=== PATIENT | male | born 1955 | race Caucasian/White ===

== ENCOUNTER 2018-06-30 12:13 | Emergency (ER) | payer OTHER ==
[~2018-06-30] VITALS: Ht 170.2 cm; Wt 97.5 kg
[~2018-06-30 12:13] MED LIST: AVAPRO150 MG; CIPRO500 MG PO; LESCOL20 MG; LEVSIN/SL0.125 MG SL; TAMS0.4C PO; ULTRACET PO
== END 2018-06-30 15:18 | disposition home or self-care (01) ==
LOC: ER 12:13
DX: R10.32 Left lower quadrant pain (principal)

== ENCOUNTER 2018-12-22 15:44 | Emergency (ER) | payer OTHER ==
[~2018-12-22] VITALS: Ht 170.2 cm; Wt 102.1 kg
[2018-12-22] MEDS ORDERED: MICARDIS40 MG (15:59)
[2018-12-22] MEDS ORDERED: OMEGA 3 ACID (16:01)
== END 2018-12-22 19:59 | disposition home or self-care (01) ==
LOC: ER 15:44
DX: M94.0 Chondrocostal junction syndrome [Tietze] (principal)

== ENCOUNTER 2022-05-15 20:27 | Emergency (ER) | payer OTHER ==
[~2022-05-15] VITALS: Ht 185.4 cm; Wt 95.3 kg
[~2022-05-15 20:27] MED LIST changes: +MICARDIS40 MG; +OMEGA 3 ACID
[2022-05-15] MEDS ORDERED: KEPPRA500 MG (20:41)
[2022-05-15] MEDS ORDERED: LANTUS SOL100 UNIT/1 (20:42)
[2022-05-15] MEDS ORDERED: MILLIPRED5 MG (20:42)
[2022-05-15] MEDS ORDERED: TERAZOSIN HCL1 M1 (20:42)
[2022-05-15] MEDS ORDERED: VISTARIL25 MG (20:42)
== END 2022-05-16 04:13 | disposition designated cancer center or children's hospital (05) ==
LOC: ER 20:27
DX: J95.03 Malfunction of tracheostomy stoma (principal); I10 Essential (primary) hypertension; Z88.0 Allergy status to penicillin; I63.9 Cerebral infarction, unspecified; Z20.822 Contact with and (suspected) exposure to COVID-19

== ENCOUNTER 2022-05-21 13:45 | Inpatient (IN) | payer OTHER ==
[~2022-05-21] VITALS: Ht 152.4 cm; Wt 952.5 kg
[~2022-05-21 13:45] MED LIST changes: +KEPPRA500 MG; +LANTUS SOL100 UNIT/1; +MILLIPRED5 MG; +TERAZOSIN HCL1 M1; +VISTARIL25 MG
[2022-05-23] MEDS ORDERED: PAROXETINE HCL20 MG (08:13)
[2022-05-23] MEDS ORDERED: FAMOTIDINE20 MG (08:13)
[2022-05-23] MEDS ORDERED: OMEPRAZOLE20 MG (08:13)
[2022-05-23] MEDS ORDERED: PREDNISONE10 M2 (08:13)
[2022-05-23] MEDS ORDERED: SPIRONOLACTONE25 MG (08:13)
[2022-05-23] MEDS ORDERED: MIDODRINE HCL10 MG (08:13)
[2022-05-23] MEDS ORDERED: FLOVENT HFA12 G1 (08:13)
[2022-05-23] MEDS ORDERED: EZETIMIBE10 MG (08:14)
[2022-05-23] MEDS ORDERED: TELMISARTAN40 MG (08:14)
[2022-05-23] MEDS ORDERED: FLUVASTATIN SOD40 MG (08:14)
[2022-06-13] MEDS ORDERED: KEPPRA100 MG/1 M PO (15:15)
[2022-06-13] MEDS ORDERED: XOPENEX0.63 MG/3 IH (15:15)
== END 2022-06-13 22:36 | disposition home or self-care (01) | DRG 3 ==
LOC: ER 13:45 → ICU 05-22 11:40 → ICU-2 05-22 11:40 → MEDI 05-26 13:11 → ICU 05-28 02:57
PROVIDERS: Otolaryngology; ADMIT Internal Medicine; ATTEND Internal Medicine
PROC: B020ZZZ Computerized Tomography (CT Scan) of Brain (ICD-10-PCS; 2022-05-21)
PROC: 5A1945Z Respiratory Ventilation, 24-96 Consecutive Hours (ICD-10-PCS; 2022-05-22)
PROC: 0BH17EZ Insertion of Endotracheal Airway into Trachea, Via Natural or Artificial Opening (ICD-10-PCS; 2022-05-22)
PROC: 02HV33Z Insertion of Infusion Device into Superior Vena Cava, Percutaneous Approach (ICD-10-PCS; 2022-05-24)
PROC: 5A1955Z Respiratory Ventilation, Greater than 96 Consecutive Hours (ICD-10-PCS; 2022-05-27)
PROC: 0BH17EZ Insertion of Endotracheal Airway into Trachea, Via Natural or Artificial Opening (ICD-10-PCS; 2022-05-27)
PROC: 4A12X4Z Monitoring of Cardiac Electrical Activity, External Approach (ICD-10-PCS; 2022-05-27)
PROC: 0G8J0ZZ Division of Thyroid Gland Isthmus, Open Approach (ICD-10-PCS; 2022-06-07)
PROC: B020ZZZ Computerized Tomography (CT Scan) of Brain (ICD-10-PCS; 2022-06-07)
PROC: 0B110F4 Bypass Trachea to Cutaneous with Tracheostomy Device, Open Approach (ICD-10-PCS; principal; 2022-06-07 18:15)
PROC: 5A0955A Assistance with Respiratory Ventilation, Greater than 96 Consecutive Hours, High Flow/Velocity Cannula (ICD-10-PCS; 2022-06-09)
DX: J96.20 Acute and chronic respiratory failure, unspecified whether with hypoxia or hypercapnia (principal); G93.41 Metabolic encephalopathy; I69.351 Hemiplegia and hemiparesis following cerebral infarction affecting right dominant side; N39.0 Urinary tract infection, site not specified; J95.09 Other tracheostomy complication; J95.851 Ventilator associated pneumonia; J81.1 Chronic pulmonary edema; J98.8 Other specified respiratory disorders; B96.4 Proteus (mirabilis) (morganii) as the cause of diseases classified elsewhere; B95.61 Methicillin susceptible Staphylococcus aureus infection as the cause of diseases classified elsewhere; J39.8 Other specified diseases of upper respiratory tract; G47.33 Obstructive sleep apnea (adult) (pediatric); R23.0 Cyanosis; I11.9 Hypertensive heart disease without heart failure; I49.9 Cardiac arrhythmia, unspecified; I69.398 Other sequelae of cerebral infarction; R56.9 Unspecified convulsions; Z93.1 Gastrostomy status; Z95.0 Presence of cardiac pacemaker; Z99.81 Dependence on supplemental oxygen; Z88.0 Allergy status to penicillin

== ENCOUNTER 2022-09-30 15:37 | Inpatient (IN) | payer OTHER ==
[~2022-09-30] VITALS: Ht 170.2 cm; Wt 95.3 kg
[~2022-09-30 15:37] MED LIST changes: +EZETIMIBE10 MG; +FAMOTIDINE20 MG; +FLOVENT HFA12 G1; +FLUVASTATIN SOD40 MG; +KEPPRA100 MG/1 M PO; +MIDODRINE HCL10 MG; +OMEPRAZOLE20 MG; +PAROXETINE HCL20 MG; +PREDNISONE10 M2; +SPIRONOLACTONE25 MG; +TELMISARTAN40 MG; +XOPENEX0.63 MG/3 IH
[2022-10-03] MEDS ORDERED: CIPRO500 MG PO (18:46)
[2022-10-03] MEDS ORDERED: SURFAK240 M1 PO (18:46)
[2022-10-03] MEDS ORDERED: MONODOX100 MG PO (18:46)
[2022-10-03] MEDS ORDERED: LACTULOSE10 GM/152 PO (18:46)
[2022-10-03] MEDS ORDERED: INTESTINEX680 M2 PO (18:46)
== END 2022-10-03 18:56 | disposition home or self-care (01) | DRG 327 ==
LOC: ER 15:37 → MEDI 23:03
PROVIDERS: ADMIT Internal Medicine; ATTEND Internal Medicine
PROC: BW21YZZ Computerized Tomography (CT Scan) of Abdomen and Pelvis using Other Contrast (ICD-10-PCS; 2022-09-30)
PROC: 0DP64UZ Removal of Feeding Device from Stomach, Percutaneous Endoscopic Approach (ICD-10-PCS; principal; 2022-10-02)
DX: K94.23 Gastrostomy malfunction (principal); T85.528A Displacement of other gastrointestinal prosthetic devices, implants and grafts, initial encounter; K94.22 Gastrostomy infection; J44.9 Chronic obstructive pulmonary disease, unspecified; K74.60 Unspecified cirrhosis of liver; E11.9 Type 2 diabetes mellitus without complications; Z79.4 Long term (current) use of insulin

== ENCOUNTER 2022-12-21 16:46 | Inpatient (IN) | payer OTHER ==
[~2022-12-21] VITALS: Ht 170.2 cm; Wt 77.1 kg
[~2022-12-21 16:46] MED LIST changes: +INTESTINEX680 M2 PO; +LACTULOSE10 GM/152 PO; +MONODOX100 MG PO; +SURFAK240 M1 PO
[2022-12-21] MEDS ORDERED: PRILOSEC10 MG (17:09)
[2022-12-21 18:46] LABS: URINE APPEARANCE Cloudy; URINE BILIRRUBIN Negative (NEGATIVE); URINE BLOOD Negative; URINE COLOR Dark Yellow; URINE GLUCOSE Negative (NEGATIVE); URINE LEUKOCYTE Trace; URINE NITRATE Negative; URINE PROTEIN Trace (NEGATIVE)
[2022-12-21 18:51] LABS: URINE BACTERIA 28.9 uL (0.0-1933); URINE EPITHELIAL CELLS 5.1 uL (0.0-38.8); URINE RBC 141.7 uL (0.0-20.8); URINE WBC 22.5 uL (0.0-23.2)
[2022-12-21 19:18] LABS: HEMATOCRIT 38.4 % (39.0-48.0); HEMOGLOBIN 12.5 g/dL (13-16.00); MEAN CELL VOLUME 87.1 fL (80.0-100.00); MEAN CORPUSCULAR HEMOGLOBIN 28.3 pg (27.00-32.0); MEAN CORPUSCULAR HGB CONC 32.5 g/dl (32.0-36.0); PLATELET COUNT 157 K/uL (150-450); RED BLOOD COUNT 4.41 M/uL (4.00-6.00); RED CELL DISTRIBUTION WIDTH 14.7 % (11.5-14.5)
[2022-12-21 19:42] LABS: URINE YEAST MANY /hpf
[2022-12-21 19:47] LABS: INR 1.11; PARTIAL THROMBOPLASTIN TIME 34.9 SECONDS (22.0-34.0); PROTHROMBIN TIME 11.6 SECONDS (9.0-11.5)
[2022-12-21 19:48] LABS: CALCIUM 8.2 mg/dL (8.5-10.1); CREATININE SERUM 0.53 mg/dL (0.70-1.30); GFR 154.6; POTASSIUM 3.52 mEq/L (3.5-5.1)
[2022-12-23 06:42] LABS: INR 1.13; PARTIAL THROMBOPLASTIN TIME 29.5 SECONDS (22.0-34.0); PROTHROMBIN TIME 11.8 SECONDS (9.0-11.5)
[2022-12-24 06:33] LABS: HEMATOCRIT 33.7 % (39.0-48.0); HEMOGLOBIN 11.5 g/dL (13-16.00); MEAN CORPUSCULAR HEMOGLOBIN 28.9 pg (27.00-32.0); PLATELET COUNT 183 K/uL (150-450); RED BLOOD COUNT 3.97 M/uL (4.00-6.00)
[2022-12-24 06:57] LABS: ALBUMIN 1.8 gm/dL (3.4-5.0); BILIRUBIN TOTAL 0.52 mg/dL (0.3-1.2); CREATININE SERUM 0.39 mg/dL (0.70-1.30); GFR 220.26; GLOBULINA 2.9 G/DL (2.4-3.5); MAGNESIUM 1.8 mg/dL (1.8-2.4); PHOSPHOROUS 2.1 mg/dL (2.5-4.9); POTASSIUM 3.3 mEq/L (3.5-5.1); TOTAL PROTEIN 4.7 gm/dL (6.4-8.2)
[2022-12-24 11:26] LABS: URINE APPEARANCE Clear; URINE BILIRRUBIN Negative (NEGATIVE); URINE BLOOD Negative; URINE COLOR Yellow; URINE GLUCOSE Negative (NEGATIVE); URINE LEUKOCYTE Trace; URINE NITRATE Negative; URINE PROTEIN Negative (NEGATIVE); URINE UROBILINOGEN 0.2 E.U./dl
[2022-12-24 11:32] LABS: URINE BACTERIA 7.5 uL (0.0-1933); URINE RBC 20.9 uL (0.0-20.8); URINE WBC 27.6 uL (0.0-23.2)
[2022-12-24 11:37] LABS: URINE EPITHELIAL CELLS 1.3 uL (0.0-38.8)
[2022-12-24 13:58] LABS: URINE CRYSTALS NEGATIVE /HPF; URINE MUCUS SCANT; URINE YEAST MODERATE /hpf
[2022-12-25 05:18] LABS: CREATININE SERUM 0.4 mg/dL (0.70-1.30); GFR 213.92; POTASSIUM 3.33 mEq/L (3.5-5.1)
[2022-12-26 06:24] LABS: HEMATOCRIT 31.2 % (39.0-48.0); HEMOGLOBIN 10.8 g/dL (13-16.00); MEAN CELL VOLUME 84.6 fL (80.0-100.00); MEAN CORPUSCULAR HEMOGLOBIN 29.2 pg (27.00-32.0); MEAN CORPUSCULAR HGB CONC 34.5 g/dl (32.0-36.0); PLATELET COUNT 213 K/uL (150-450); RED BLOOD COUNT 3.68 M/uL (4.00-6.00); RED CELL DISTRIBUTION WIDTH 14.8 % (11.5-14.5)
[2022-12-26 06:56] LABS: ALBUMIN 1.7 gm/dL (3.4-5.0); BILIRUBIN TOTAL 0.42 mg/dL (0.3-1.2); CALCIUM 7.9 mg/dL (8.5-10.1); CREATININE SERUM 0.4 mg/dL (0.70-1.30); GFR 213.92; MAGNESIUM 1.8 mg/dL (1.8-2.4); PHOSPHOROUS 2.2 mg/dL (2.5-4.9); POTASSIUM 3.33 mEq/L (3.5-5.1); TOTAL PROTEIN 4.7 gm/dL (6.4-8.2)
[2022-12-26 07:33] LABS: C-REACTIVE PROTEIN 2.98 MG/DL (0.00-0.29)
== END 2022-12-26 16:49 | disposition home or self-care (01) | DRG 392 ==
LOC: ER 16:46 → MEDJ 12-22 17:25
PROVIDERS: General Practice; Internal Medicine Infectious Disease; ADMIT Internal Medicine; ATTEND Internal Medicine
PROC: BW21ZZZ Computerized Tomography (CT Scan) of Abdomen and Pelvis (ICD-10-PCS; principal; 2022-12-21)
DX: K52.9 Noninfective gastroenteritis and colitis, unspecified (principal); B37.49 Other urogenital candidiasis; I88.9 Nonspecific lymphadenitis, unspecified; E11.9 Type 2 diabetes mellitus without complications; I10 Essential (primary) hypertension; Z74.01 Bed confinement status; Z79.4 Long term (current) use of insulin; Z93.0 Tracheostomy status; Z93.1 Gastrostomy status

== ENCOUNTER 2023-11-05 11:05 | Emergency (ER) | payer OTHER ==
[~2023-11-05] VITALS: Ht 170.2 cm; Wt 86.2 kg
[~2023-11-05 11:05] MED LIST changes: +PRILOSEC10 MG
[2023-11-05] MEDS ORDERED: ZETIA10 MG PO (11:21)
[2023-11-05] MEDS ORDERED: EZETIMIBE10 MG PO (11:21)
[2023-11-05] MEDS ORDERED: 0.9 % SODIUM CHLORIDE 1,000 ML IV STA (11:51)
[2023-11-05] MEDS ORDERED: KETOROLAC TROMETHAMINE 60 MG VIAL IM STA (11:52)
[2023-11-05] MEDS ORDERED: KETOROLAC TROMETHAMINE 60 MG VIAL IM ONE (12:00)
[2023-11-05 12:25] LABS: HEMATOCRIT 38.9 % (39.0-48.0); HEMOGLOBIN 12.9 g/dL (13-16.00); MEAN CELL VOLUME 88.7 fL (80.0-100.00); MEAN CORPUSCULAR HEMOGLOBIN 29.4 pg (27.00-32.0); MEAN CORPUSCULAR HGB CONC 33.2 g/dl (32.0-36.0); PLATELET COUNT 140 K/uL (150-450); RED BLOOD COUNT 4.39 M/uL (4.00-6.00); RED CELL DISTRIBUTION WIDTH 15.6 % (11.5-14.5)
[2023-11-05 12:36] LABS: URINE APPEARANCE Cloudy; URINE BILIRRUBIN Negative (NEGATIVE); URINE BLOOD Large; URINE COLOR Dark Yellow; URINE GLUCOSE Negative (NEGATIVE); URINE KETONE Trace (NEGATIVE); URINE LEUKOCYTE Moderate; URINE NITRATE Negative; URINE PROTEIN 30 (NEGATIVE)
[2023-11-05 12:40] LABS: URINE BACTERIA 30.2 uL (0.0-1933); URINE CAST 1.52 uL (0.0-1.40); URINE EPITHELIAL CELLS 3.8 uL (0.0-38.8); URINE RBC 418.8 uL (0.0-20.8); URINE WBC 448.3 uL (0.0-23.2)
[2023-11-05 13:08] LABS: URINE CRYSTALS FEW /HPF; URINE YEAST MANY /hpf
[2023-11-05 13:16] LABS: ALBUMIN 2.4 gm/dL (3.4-5.0); BILIRUBIN TOTAL 1.91 mg/dL (0.3-1.2); BILIRUBIN,CONJUGATED 0.71 mg/dL (0.0-0.2); BILIRUBIN,UNCONJUGATED 1.2 mg/dL (0.0-0.6); CALCIUM 8.7 mg/dL (8.5-10.1); CREATININE SERUM 1.14 mg/dL (0.70-1.30); GFR 63.69; POTASSIUM 4.54 mEq/L (3.5-5.1)
[2023-11-05] MEDS ORDERED: CIPROFLOXACIN IN 5 % DEXTROSE 400 MG/200 ML PIGGYBAG IV STA (15:20)
[2023-11-05] MEDS ORDERED: TAMSULOSIN HCL 0.4 MG CAP PO STA (15:21)
[2023-11-05] MEDS ORDERED: TAMSULOSIN HCL 0.4 MG CAP PO ONE (15:33)
[2023-11-05] MEDS ORDERED: CIPROFLOXACIN IN 5 % DEXTROSE 400 MG/200 ML PIGGYBAG IV ONE (15:33)
== END 2023-11-05 17:16 | disposition home or self-care (01) ==
LOC: ER 11:05
PROVIDERS: General Practice
DX: R10.9 Unspecified abdominal pain (principal); Z88.0 Allergy status to penicillin; Z86.73 Personal history of transient ischemic attack (TIA), and cerebral infarction without residual deficits; E03.8 Other specified hypothyroidism; F32.89 Other specified depressive episodes; Z93.0 Tracheostomy status; N20.1 Calculus of ureter; N13.39 Other hydronephrosis
CPT/HCPCS: 36415; 74176; 96365; 96366; 99284; J7030

== ENCOUNTER 2023-12-18 15:03 | Outpatient (CLI) | payer OTHER ==
[~2023-12-18 15:03] MED LIST changes: +EZETIMIBE10 MG PO; +ZETIA10 MG PO
== END 2023-12-18 15:24 | disposition home or self-care (01) ==
LOC: TOM 15:03
PROVIDERS: ATTEND Urology
DX: N20.1 Calculus of ureter (principal)

== ENCOUNTER 2024-04-23 10:34 | Outpatient (CLI) | payer OTHER | END 2024-04-23 10:39 | disposition home or self-care (01) | LOC: TOM 10:34 | PROVIDERS: ATTEND Urology | DX: M25.561 Pain in right knee (principal); M54.50 Low back pain, unspecified; N20.0 Calculus of kidney; N21.0 Calculus in bladder ==

== ENCOUNTER 2024-09-24 10:28 | Emergency (ER) | payer OTHER ==
[~2024-09-24] VITALS: Ht 175.3 cm; Wt 86.2 kg
[2024-09-24 12:46] LABS: BASO % 1.0 % (0.1-1.2); EOS # 0.32 (0.04-0.54); EOS % 6.4 % (0.7-7.0); LYMPH # 1.08 (1.18-3.74); LYMPH % 21.6 % (19.3-53.1); MEAN PLATELET VOLUME 12.00 fl (9.4-12.4); MONO # 0.57 (0.24-0.82); MONO % 11.4 % (4.7-12.5); NEUT # 2.98 (1.56-6.13); NEUT % 59.4 % (34.0-71.1); RED CELL DISTRIBUTION WIDTH 15.9 % (11.6-14.4)
[2024-09-24 13:12] LABS: INR 1.14
[2024-09-24 13:18] LABS: ALT/SGPT 47.0 U/L (12-78); AST/SGOT 48.0 U/L (15-37); BUN CREA RATIO 23.0 (7.0-25.0); CREATININE SERUM 0.57 mg/dL (0.70-1.30); GFR 141.32; GLUCOSE FASTING 107.0 mg/dL (65-100); LDH 153.0 U/L (87-241); OSMOLALITY SERUM 289.0 MOSM/KG (275-295); PHOSPHOKINASE CREATININE 40.0 U/L (39-308)
== END 2024-09-24 15:54 | disposition home or self-care (01) ==
LOC: ER 10:28
PROVIDERS: Emergency Medicine
DX: R07.9 Chest pain, unspecified (principal); I10 Essential (primary) hypertension; Z88.0 Allergy status to penicillin